=== PATIENT | female | born 1970 | race African-American/Black ===

== ENCOUNTER 2020-06-04 17:07 | Inpatient (IN) | payer MEDICARE, MEDICAID ==
[~2020-06-04] VITALS: Ht 165.1 cm; Wt 68.0 kg
[2020-06-04] MEDS ORDERED: OMEPRAZOLE40 MG (17:12)
[2020-06-04 18:24] LABS: ANION GAP 14.4 mmol/L (8-16); CARBON DIOXIDE 31.2 mmol/L (21.0-32.0); CREATININE - SERUM 1.4 mg/dL (0.6-1.3); POTASSIUM - SERUM 3.6 mmol/L (3.5-5.1)
[2020-06-04 18:27] LABS: BASOPHILS 0.1 % (0-2); EOSINOPHILS 0.5 % (0-7); HEMATOCRIT 45.8 % (36.0-48.0); HEMOGLOBIN 13.9 g/dL (12-16); IMMATURE GRANULOCYTES 0.2 % (0-5); LYMPHOCYTE ABS# 3.06 10x3/uL (1.18-3.74); LYMPHOCYTES 22.6 % (15-50); MCH 28.2 pg (26.0-34.0); MCHC 30.3 g/dL (31.0-37.0); MCV 92.9 fL (80.0-100.0); MEAN PLATELET VOLUME 10.5 fL (7.4-10.4); MONOCYTES 6.8 % (2-11); NEUTROPHIL ABS# 9.46 10x3/uL (1.56-6.13); NEUTROPHILS 69.8 % (40-80); PLATELET COUNT 387 10x3/uL (130-400); RBC 4.93 10x6/uL (4.00-5.40); RDW 15.3 % (11.5-14.5); WBC 13.6 10x3/uL (4.8-10.8)
[2020-06-04 18:30] LABS: ALBUMIN 3.9 g/dL (3.4-5.0); BILIRUBIN - TOTAL 0.47 mg/dL (0.2-1.3); PROTEIN - SERUM 7.8 g/dL (6.4-8.2)
[2020-06-04 21:45] VITALS: BP 110/69
[2020-06-05 00:03] VITALS: BP 108/76; BMI 25.0
[2020-06-05 04:00] VITALS: BP 112/72
[2020-06-05 06:05] LABS: INR 1.14 (0.85-1.17); PROTIME 13.5 SECONDS (11.6-15.0)
[2020-06-05 06:16] LABS: BASOPHILS 0.1 % (0-2); HEMOGLOBIN 12.3 g/dL (12-16); IMMATURE GRANULOCYTES 0.3 % (0-5); LYMPHOCYTE ABS# 3.14 10x3/uL (1.18-3.74); LYMPHOCYTES 27.7 % (15-50); MCH 27.7 pg (26.0-34.0); MCV 92.3 fL (80.0-100.0); MEAN PLATELET VOLUME 11.2 fL (7.4-10.4); MONOCYTES 7.7 % (2-11); NEUTROPHIL ABS# 7.18 10x3/uL (1.56-6.13); NEUTROPHILS 63.2 % (40-80); PLATELET COUNT 388 10x3/uL (130-400); RBC 4.44 10x6/uL (4.00-5.40); RDW 15.6 % (11.5-14.5); WBC 11.3 10x3/uL (4.8-10.8)
--- NOTE | 2020-06-05 06:21 | NUR ---
ASSESSED AT THE TIME OF ADMIT FROM THE ER. PT IS SLEEPY AND NOT WANTING TO WAKE UP. MOM WAS AT THE BEDSIDE AND ANSWERED QUESTIONS. STATED DAUGHTER IS ORIENTED BUT BECAUSE OF HER DEAFNESS AND SUCH POOR VISION SHE MIGHT NOT APPEAR TO BE. ONCE DURING THE NIGHT SHE WAS ASSISTED UP TO THE BATHROOM TO VOID. SHE HAD NO PROBLEM WITH NURSE LEADING HER. THE REST OF THE NIGHT SHE HAS BEEN SLEEPING QUIET.
[2020-06-05 06:32] LABS: ALBUMIN 3.4 g/dL (3.4-5.0); ALKALINE PHOSPHATASE 87 U/L (30-120); BILIRUBIN - TOTAL 0.37 mg/dL (0.2-1.3); CALC OSMOLALITY 290 mosm/kg (275-300); CALCIUM 8.2 mg/dL (8.5-10.1); CARBON DIOXIDE 25.5 mmol/L (21.0-32.0); CHLORIDE - SERUM 106 mmol/L (98-107); CREATINE KINASE 32 UL (21-215); CREATININE - SERUM 1.1 mg/dL (0.6-1.3); GLUCOSE 79 mg/dL (74-106); MAGNESIUM - SERUM 2.5 mg/dL (1.8-2.4); POTASSIUM - SERUM 3.5 mmol/L (3.5-5.1); PROTEIN - SERUM 6.6 g/dL (6.4-8.2); SODIUM 145 mmol/L (136-145); TROPONIN-I < 0.017 ng/mL (0.000-0.060); UREA NITROGEN 22 mg/dL (7-18); eGFR NON AFRICAN AMERICAN 55 mL/min (90-120)
[2020-06-05 06:36] LABS: ALT (SGPT) 182 U/L (10-68)
--- NOTE | 2020-06-05 07:20 | NUR ---
REC'D IN BED RESTING WITH EYES CLOSED EASILY TO AROUSED WHEN NAME IS CALLED. RESP EVEN AND UNLABORED WITH NO DISTRESS NOTED. CAN EXPRESS NEEDS AND WANTS. NO C/O NOTED OR VOICED. ASSESSMENT COMPLETED. C/L IN REACH AT BEDSIDE.
[2020-06-05 08:33] VITALS: BP 119/77
[2020-06-05 13:47] VITALS: Ht 165.1 cm; Wt 68.0 kg
[2020-06-05 13:56] VITALS: BP 106/70
--- NOTE | 2020-06-05 14:07 | NUR ---
JUST REC'D BACK FROM RECOVERY WITH DRESSING NOTED TO MILD LINE AND STOMA BEET RED WITH SOME BLOODY DRAINAGE NOTED TO BAG. NO DISCOMFORT NOTED. MOM AT BEDSIDE. WILL CONTIUE TO MONITOR. C/L IN REACH AT BEDSIDE.
[2020-06-05 17:07] VITALS: BP 118/73
--- NOTE | 2020-06-05 17:21 | NUR ---
I have reviewed this patient and I concur with the Shift Assessment completed by the Licensed Practical Nurse today this shift.
[2020-06-05 20:21] VITALS: BP 120/77; BP 155/61
[2020-06-06 00:22] VITALS: BP 124/75
[2020-06-06 05:26] VITALS: BP 122/76
[2020-06-06 05:39] LABS: BASOPHILS 0.1 % (0-2); EOSINOPHILS 0.2 % (0-7); HEMATOCRIT 36.9 % (36.0-48.0); HEMOGLOBIN 11.1 g/dL (12-16); IMMATURE GRANULOCYTES 0.2 % (0-5); LYMPHOCYTE ABS# 2.96 10x3/uL (1.18-3.74); MCH 27.5 pg (26.0-34.0); MCHC 30.1 g/dL (31.0-37.0); MCV 91.3 fL (80.0-100.0); MEAN PLATELET VOLUME 11.2 fL (7.4-10.4); MONOCYTES 8.5 % (2-11); NEUTROPHIL ABS# 9.85 10x3/uL (1.56-6.13); PLATELET COUNT 325 10x3/uL (130-400); RBC 4.04 10x6/uL (4.00-5.40); RDW 15.6 % (11.5-14.5); WBC 14.1 10x3/uL (4.8-10.8)
[2020-06-06 06:57] LABS: ANION GAP 17.4 mmol/L (8-16); BILIRUBIN - TOTAL 0.44 mg/dL (0.2-1.3); CALCIUM 7.6 mg/dL (8.5-10.1); CARBON DIOXIDE 20.6 mmol/L (21.0-32.0); PROTEIN - SERUM 5.3 g/dL (6.4-8.2)
[2020-06-06 06:58] LABS: ALBUMIN 2.5 g/dL (3.4-5.0)
[2020-06-06 08:10] VITALS: BP 121/75
--- NOTE | 2020-06-06 09:25 | NUR ---
PATIENT DEAF, BLIND, AND NON VERBAL. MOM AT BEDSIDE. ASSESSMENT COMPLETE. BED LOW. CALL CONDON AND PERSONAL ITEMS IN REACH. WILL CONTINUE TO MONITOR.
[2020-06-06 10:11] LABS: HEPATITIS C ANTIBODY <0.1 S/CO RAT (0.0-0.9)
--- NOTE | 2020-06-06 10:55 | NUR ---
GUTHRIE CLAMPED TO OBTAIN URINE SAMPLE.
--- NOTE | 2020-06-06 11:36 | NUR ---
UA COLLECTED AND TAKEN TO LAB.
[2020-06-06 11:59] VITALS: BP 130/76
[2020-06-06 12:19] LABS: BILIRUBIN NEGATIVE (NEGATIVE); KETONE LARGE mg/dL (NEGATIVE); NITRITE NEGATIVE (NEGATIVE); UROBILINOGEN NORMAL mg/dL (< 2)
[2020-06-06 12:21] LABS: BACTERIA FEW HPF (NONE SEEN); WHITE CELLS - URINE 0-5 HPF (0-4)
--- NOTE | 2020-06-06 13:20 | NUR ---
PT IN BED SUPINE. FAMILY AT BEDSIDE SPEAKING FOR PATIENT. DENIES ANY NEEDS AT THIS TIME. BED IN LOWEST POSITION, BED RAILS X2, CALL LIGHT WITHIN REACH. WILL CONTINUE POC.
--- NOTE | 2020-06-06 14:04 | NUR ---
HUNG IV TYLENOL. TOLERATING WELL, RESTING COMFORTABLY. FAMILY AT BEDSIDE. DENIES ANY NEEDS AT THIS TIME. BED IN LOWEST POSITION, BED RAILS X2, CALL LIGHT WITHIN REACH. WILL CONTINUE POC.
[2020-06-06 17:21] VITALS: BP 125/81
[2020-06-06 21:51] VITALS: BP 131/77
[2020-06-07 01:18] VITALS: BP 114/78
[2020-06-07 05:56] VITALS: BP 129/63
[2020-06-07 06:37] LABS: BASOPHILS 0.1 % (0-2); EOSINOPHILS 1.6 % (0-7); HEMATOCRIT 30.9 % (36.0-48.0); HEMOGLOBIN 9.2 g/dL (12-16); IMMATURE GRANULOCYTES 0.3 % (0-5); LYMPHOCYTE ABS# 2.61 10x3/uL (1.18-3.74); LYMPHOCYTES 24.4 % (15-50); MCH 27.4 pg (26.0-34.0); MCHC 29.8 g/dL (31.0-37.0); MEAN PLATELET VOLUME 10.7 fL (7.4-10.4); MONOCYTES 6.6 % (2-11); NEUTROPHIL ABS# 7.17 10x3/uL (1.56-6.13); PLATELET COUNT 293 10x3/uL (130-400); RBC 3.36 10x6/uL (4.00-5.40); RDW 15.4 % (11.5-14.5); WBC 10.7 10x3/uL (4.8-10.8)
[2020-06-07 06:51] LABS: ALBUMIN 2.2 g/dL (3.4-5.0); ANION GAP 13.8 mmol/L (8-16); BILIRUBIN - TOTAL 0.36 mg/dL (0.2-1.3); CALCIUM 7.7 mg/dL (8.5-10.1); CARBON DIOXIDE 20.7 mmol/L (21.0-32.0); CREATININE - SERUM 0.9 mg/dL (0.6-1.3); MAGNESIUM - SERUM 1.8 mg/dL (1.8-2.4); PHOSPHOROUS 2.4 mg/dL (2.5-4.9); POTASSIUM - SERUM 3.5 mmol/L (3.5-5.1); PROTEIN - SERUM 5.1 g/dL (6.4-8.2)
--- NOTE | 2020-06-07 07:51 | NUR ---
PT IN BED EYES CLOSED UPON ENTERING, FAMLY AT BEDSIDE. NO S/S OF DISTRESS NOTED AT THIS TIME. BED IN LOWEST POSITION, BED RAILS X2, CALL LIGHT WITHIN REACH. WILL CONTINUE POC.
--- NOTE | 2020-06-07 09:46 | NUR ---
PT IN BED WITH EYES CLOSED. BREATHING EVEN AND NON LABORED NO S/S OF DISTRESS NOTED AT THIS TIME. FAMILY AT BEDSIDE. ADMINISTERED MEDICATIONS, TOLERATED WELL. BED IN LOWEST POSITION, BED RAILS X2, CALL LIGHT WITHIN REACH. WILL CONTINUE POC.
--- NOTE | 2020-06-07 10:25 | NUR ---
PATIENT WITHOUT NEEDS.CALL LIGHT IN REACH
[2020-06-07 13:31] VITALS: BP 143/83
--- NOTE | 2020-06-07 13:57 | NUR ---
CALL PHARMACY FOR BAG OF PHOS DUE TO PT LEVEL OF 2.4 TOOLMAKER WAS RUDE ON THE PHONE. ANOTHER GENTLEMAN ANSWERED THE PHONE AND DID NOT GIVE ME THE NAME OF THE PREVIOUS WOMAN SPEAKING. GOT PHOS FILLED AFTER SPEAKING WITH HIM, NO ISSUES.
--- NOTE | 2020-06-07 16:01 | NUR ---
HUNG IV PHOS TO REPLACE EP PER PROTOCOL. TOLERATING WELL. PT APPEARS COMFORTABLE. FAMILY AT BEDSIDE. DENIES ANY NEEDS. WILL CONTINUE POC.
[2020-06-07 17:06] VITALS: BP 125/78
--- NOTE | 2020-06-07 18:39 | NUR ---
NEW BAG OF IV FLUIDS, TOLERATING WELL. FAMILY AT BEDSIDE. ATTEMTPED TO FEED PATIENT, IS NOT INTERESTED IN DINNER AT THIS TIME. FAMILY MEMBER WILL CONTINUE TO TRY. DENIES ANY NEEDS AT THIS TIME. WILL CONTINUE POC.
[2020-06-07 20:51] VITALS: BP 125/80
[2020-06-08 06:36] VITALS: BP 152/67
[2020-06-08 07:06] LABS: BASOPHILS 0.1 % (0-2); EOSINOPHILS 2.9 % (0-7); HEMATOCRIT 30.2 % (36.0-48.0); HEMOGLOBIN 9.1 g/dL (12-16); IMMATURE GRANULOCYTES 0.1 % (0-5); LYMPHOCYTE ABS# 2.29 10x3/uL (1.18-3.74); LYMPHOCYTES 24.4 % (15-50); MCH 27.1 pg (26.0-34.0); MCHC 30.1 g/dL (31.0-37.0); MEAN PLATELET VOLUME 10.5 fL (7.4-10.4); MONOCYTES 6.9 % (2-11); NEUTROPHIL ABS# 6.16 10x3/uL (1.56-6.13); NEUTROPHILS 65.6 % (40-80); PLATELET COUNT 310 10x3/uL (130-400); RBC 3.36 10x6/uL (4.00-5.40); RDW 15.2 % (11.5-14.5); WBC 9.4 10x3/uL (4.8-10.8)
[2020-06-08 07:19] LABS: MCV 89.9 fL (80.0-100.0)
[2020-06-08 07:24] LABS: ALBUMIN 2.2 g/dL (3.4-5.0); ALKALINE PHOSPHATASE 67 U/L (30-120); ALT (SGPT) 87 U/L (10-68); BILIRUBIN - TOTAL 0.31 mg/dL (0.2-1.3); CALCIUM 7.9 mg/dL (8.5-10.1); CARBON DIOXIDE 21.2 mmol/L (21.0-32.0); CHLORIDE - SERUM 109 mmol/L (98-107); CREATININE - SERUM 0.7 mg/dL (0.6-1.3); MAGNESIUM - SERUM 1.7 mg/dL (1.8-2.4); PHOSPHOROUS 2.3 mg/dL (2.5-4.9); PROTEIN - SERUM 5.2 g/dL (6.4-8.2); SODIUM 140 mmol/L (136-145); eGFR NON AFRICAN AMERICAN > 90 mL/min (90-120)
[2020-06-08 07:33] LABS: CALC OSMOLALITY 276 mosm/kg (275-300); GLUCOSE 100 mg/dL (74-106); UREA NITROGEN 7 mg/dL (7-18)
[2020-06-08 08:34] VITALS: BP 110/72
[2020-06-08 11:49] VITALS: BP 122/80
[2020-06-08 15:55] VITALS: BP 118/75
--- NOTE | 2020-06-08 19:45 | NUR ---
RECEIVED BEDSIDE REPORT. PT LAYING IN BED, DEAF AND BILAT PARTIAL BLINDNESS, PT IS NON-VERBAL, MOTHER IS AT BEDSIDE. PIV TO RIGHT HAND PATENT AND INFUSING, NO REDNESS OR SWELLING. COLOSOTMY TO RIGHT ABD, PATENT. MIDLINE INCISION TO MID ABD X2 LAP SITES. GUTHRIE IN PLACE DRAINING TO GRAVITY, STATLOCK IN PLACE, URINE CLEAR YELLOW. PT ABLE TO AMBULATE WITH PHYSICAL THERAPY TO EDGE OF BED. EDUCATED FAMILY ON CL AND NEEDS, VERBALIZED UNDERSTANDING. BED LOW, CL IN REACH.
[2020-06-08 20:00] VITALS: BP 119/69
[2020-06-09 04:00] VITALS: BP 104/75
--- NOTE | 2020-06-09 04:22 | NUR ---
CHANGED COLOSTOMY BAG, PT TOLERATED WELL. BED LOW, CL IN REACH.
[2020-06-09 06:30] LABS: BASOPHILS 0.1 % (0-2); EOSINOPHILS 3.8 % (0-7); HEMATOCRIT 29.8 % (36.0-48.0); IMMATURE GRANULOCYTES 0.1 % (0-5); LYMPHOCYTE ABS# 2.12 10x3/uL (1.18-3.74); LYMPHOCYTES 30.9 % (15-50); MCHC 30.2 g/dL (31.0-37.0); MCV 89.5 fL (80.0-100.0); MEAN PLATELET VOLUME 10.4 fL (7.4-10.4); MONOCYTES 6.1 % (2-11); NEUTROPHIL ABS# 4.05 10x3/uL (1.56-6.13); PLATELET COUNT 336 10x3/uL (130-400); RBC 3.33 10x6/uL (4.00-5.40); RDW 15.2 % (11.5-14.5); WBC 6.9 10x3/uL (4.8-10.8)
[2020-06-09 06:38] LABS: ALBUMIN 2.1 g/dL (3.4-5.0); ALKALINE PHOSPHATASE 67 U/L (30-120); ALT (SGPT) 148 U/L (10-68); BILIRUBIN - TOTAL 0.21 mg/dL (0.2-1.3); CALC OSMOLALITY 277 mosm/kg (275-300); CARBON DIOXIDE 21.5 mmol/L (21.0-32.0); CHLORIDE - SERUM 109 mmol/L (98-107); CREATININE - SERUM 0.8 mg/dL (0.6-1.3); GLUCOSE 98 mg/dL (74-106); MAGNESIUM - SERUM 1.9 mg/dL (1.8-2.4); POTASSIUM - SERUM 3.1 mmol/L (3.5-5.1); PROTEIN - SERUM 5.2 g/dL (6.4-8.2); SODIUM 140 mmol/L (136-145); UREA NITROGEN 9 mg/dL (7-18); eGFR NON AFRICAN AMERICAN 80 mL/min (90-120)
[2020-06-09 10:39] VITALS: BP 114/74
--- NOTE | 2020-06-09 10:42 | NUR ---
Nutrition follow-up: Pt s/p hemicolectomy; now with ostomy +BM; ostomy is working per Dr. Belcher Diet advanced today to regular as tolerated Wt: 150# Will provide food choices and honor all food preferences. Follow-up: 06/11/20
[2020-06-09 14:14] VITALS: BP 109/68
[2020-06-09 18:28] VITALS: BP 115/76
--- NOTE | 2020-06-09 19:45 | NUR ---
PT LAYING IN BED, DEAF AND BLIND. PIV TO LEFT HAND, PATENT AND S/L, NO REDNESS OR SWELLING. MIDLINE INCISION TO MID ABD, X2 LAP SITES. COLOSTOMY BAG TO RIGHT ABD. PT AMBULATES WITH ASSIST. EDUCATED PT FAMILY ON CL AND NEEDS, VERBALIZED UNDERSTANDING. BED LOW, CL IN REACH.
[2020-06-09 20:00] VITALS: BP 112/75
--- NOTE | 2020-06-10 02:00 | NUR ---
CHANGED COLOSTOMY BAG, TOLERATED WELL. BED LOW, CL IN REACH.
[2020-06-10 04:00] VITALS: BP 104/62
[2020-06-10 05:55] LABS: BASOPHILS 0 % (0-2); EOSINOPHILS 4.2 % (0-7); HEMATOCRIT 27.9 % (36.0-48.0); HEMOGLOBIN 8.6 g/dL (12-16); IMMATURE GRANULOCYTES 0.3 % (0-5); LYMPHOCYTES 41.6 % (15-50); MCH 27.4 pg (26.0-34.0); MCHC 30.8 g/dL (31.0-37.0); MCV 88.9 fL (80.0-100.0); MEAN PLATELET VOLUME 10.3 fL (7.4-10.4); MONOCYTES 6.1 % (2-11); NEUTROPHIL ABS# 2.99 10x3/uL (1.56-6.13); NEUTROPHILS 47.8 % (40-80); PLATELET COUNT 343 10x3/uL (130-400); RBC 3.14 10x6/uL (4.00-5.40); RDW 15.3 % (11.5-14.5); WBC 6.3 10x3/uL (4.8-10.8)
[2020-06-10 06:20] LABS: ALBUMIN 2.2 g/dL (3.4-5.0); ALKALINE PHOSPHATASE 74 U/L (30-120); ALT (SGPT) 172 U/L (10-68); BILIRUBIN - TOTAL 0.19 mg/dL (0.2-1.3); CALC OSMOLALITY 279 mosm/kg (275-300); CALCIUM 7.8 mg/dL (8.5-10.1); CARBON DIOXIDE 20.7 mmol/L (21.0-32.0); CHLORIDE - SERUM 111 mmol/L (98-107); CREATININE - SERUM 0.7 mg/dL (0.6-1.3); GLUCOSE 81 mg/dL (74-106); PHOSPHOROUS 2.1 mg/dL (2.5-4.9); POTASSIUM - SERUM 3.5 mmol/L (3.5-5.1); PROTEIN - SERUM 5.2 g/dL (6.4-8.2); SODIUM 141 mmol/L (136-145); eGFR NON AFRICAN AMERICAN > 90 mL/min (90-120)
[2020-06-10 06:21] LABS: UREA NITROGEN 13 mg/dL (7-18)
[2020-06-10 09:28] VITALS: BP 115/70
[2020-06-10 12:31] VITALS: BP 109/73
[2020-06-10] MEDS ORDERED: HYDROCODON-ACE1 EA10 PO (14:15)
--- NOTE | 2020-06-10 16:17 | MORECARE ---
CASE MANAGEMENT DISCHARGE SUMMARY PATIENT: ZAIN HOUSTON UNIT: [id number] ADM DATE: 06/04/20 AGE: 50 : [birth year] SEX: F ROOM/BED: D.2212 AUTHOR: GAURANG SHI PHYSICIAN: REFERRING PHYSICIAN: YASIR TAMEZ DO DATE OF SERVICE: 06/10/20 Discharge Plan Patient Name: ZAIN HOUSTON Facility: [facility]:[place] : 1970 Planned Disposition: Home with Home Health Anticipated Discharge Date: Discharge Date: Expected LOS: Initial Reviewer: [email or web address] Initial Review Date: 06/04/2020 Generated: 06/10/20 5:16 pm DCPIA - Discharge Planning Initial Assessment Updated by [email or web address]: Patsy Loyd on 06/10/20 4:12 pm * Is the patient Alert and Oriented? Yes * How many steps to enter\exit or inside your home? * PCP dr chaudhari * Pharmacy [facility] in [place] * Preadmission Environment Home with Family * ADLs Partial Dependent * Partial ADLs (Assistance needed) Medication Management * Equipment None * List name and contact numbers for known caregivers / representatives who currently or will assist patient after discharge: ZULMA HOUSTON [phone] * Verbal permission to speak to the caregivers and representatives has been obtained from the patient. N/A * Community resources currently utilized None * Additional services required to return to the preadmission environment? Yes * Can the patient safely return to the preadmission environment? Yes * Has this patient been hospitalized within the prior 30 days at any hospital? No External Providers External Provider: [facility] Next Contact Date: Service Request Date: Service Type: Resolution: Reviewer: Comments: Patient Name: ZAIN HOUSTON Page [phone] at 1617 All edits/amendments must be made on the electronic document DICTATION DATE: 06/10/20 1617 ENGRAVER OPTICAL FRAMES: DARINEL 06/10/20 1617 RPT#: [id number] DC DATE: STATUS: ADM IN [id number] [place] [address] END OF REPORT
--- NOTE | 2020-06-10 16:24 | MORECARE ---
CASE MANAGEMENT DISCHARGE SUMMARY PATIENT: ZAIN HOUSTON UNIT: [id number] ADM DATE: 06/04/20 AGE: 50 : [birth year] SEX: F ROOM/BED: D.2212 AUTHOR: JOSE GUADALUPEDOC PHYSICIAN: REFERRING PHYSICIAN: YASIR TAMEZ DO DATE OF SERVICE: 06/10/20 Discharge Plan Patient Name: ZAIN HOUSTON Facility: [facility]:[place] : 1970 Planned Disposition: Home with Home Health Anticipated Discharge Date: Discharge Date: Expected LOS: Initial Reviewer: [email or web address] Initial Review Date: 06/04/2020 Generated: 06/10/20 5:24 pm Comments DCP- Discharge Planning Updated by [email or web address]: Patsy Loyd on 06/10/20 3:[address] Patient Name: ZAIN HOUSTON Admission Status: ER Accout number: [id number] Admission Date: 06-04-2020 : 1970 Admission Diagnosis:UNSP INTESTNL OBST, UNSP TO PARTIAL VERSUS COMPLETE Attending: YASIR TAMEZ Current LOS: 6 Anticipated DC Date: Planned Disposition: Home with Home Health Primary Insurance: [facility] MEDIC[employer]UTIONS Discharge Planning Comments: CM met with patient's mother to complete initial dc planning assessment. CM educated her on the CM role and verbal consent given by patient to complete assessment. Patient lives at home with her mother and brother. The patient is blind and deaf. The mother helps her with whatever is needed. At discharge patient plans to return home and feels this is a safe discharge. CM discussed availability of home health, rehab services, and medical equipment. Patient has a new ostomy and will need home health and ostomy supplies. I have sent the referral to [facility] and they have accepted the patient. I have also ordered supplies from [employer] [phone]. I spoke with Lynnette from there. Telehone order was placed and they will mail supplies after [facility] gives the AUTH. Patient's account number with [employer] is [id number]. The number for the family to call is [phone] OPT 3. XI sigend and IMM also given and explained. Patient's nurse was suppose to give supplies home with them till the other can be mailed out. CM will continue to follow and will assist as needed with dc plans/needs Glove Cleaner: Patsy Loyd DCPIA - Discharge Planning Initial Assessment Updated by [email or web address]: Patsy Loyd on 06/10/20 4:12 pm * Is the patient Alert and Oriented? Yes * How many steps to enter\exit or inside your home? * PCP dr chaudhari * Pharmacy [facility] in [place] * Preadmission Environment Home with Family * ADLs Partial Dependent * Partial ADLs (Assistance needed) Medication Management * Equipment None * List name and contact numbers for known caregivers / representatives who currently or will assist patient after discharge: ZULMA HOUSTON [phone] * Verbal permission to speak to the caregivers and representatives has been obtained from the patient. N/A * Community resources currently utilized None * Additional services required to return to the preadmission environment? Yes * Can the patient safely return to the preadmission environment? Yes * Has this patient been hospitalized within the prior 30 days at any hospital? No Coverage Notice Reviewer: [email or web address] Denise Loyd Notice Issued Date-Time: 06/10/2020 14:40 Notice Type: Patient Choice Letter Notice Delivered To: Family Member Relationship to Patient: Mother Divider Operator Name: Delivery Method: HAND - Hand Delivered Maryann Days: Prior Verbal Notification: Recipient Understood Notice: Yes Recipient Signature: Yes Med Rec Note Co-signed by Attending: Coverage Notice Comment: imm served Reviewer: [id number] Denise Loyd Notice Issued Date-Time: 06/10/2020 14:40 Notice Type: Patient Choice Letter Notice Delivered To: Relationship to Patient: Divider Operator Name: Delivery Method: HAND - Hand Delivered Maryann Days: Prior Verbal Notification: Recipient Understood Notice: Yes Recipient Signature: Yes Med Rec Note Co-signed by Attending: Coverage Notice Comment: xi for hh with mom Last DP export: 06/10/20 3:17 pm Patient Name: ZAIN HOUSTON Page 01007 at 1624 All edits/amendments must be made on the electronic document DICTATION DATE: 06/10/201623 CLAY THROWER: DARINEL 06/10/20 1624 RPT#: [id number] DC DATE: STATUS: ADM IN [facility] [address] [place] [address] END OF REPORT
--- NOTE | 2020-06-11 10:39 | MORECARE ---
CASE MANAGEMENT DISCHARGE SUMMARY PATIENT: ZAIN HOUSTON UNIT: [id number] ADM DATE: 06/04/20 AGE: 50 : [birth year] SEX: F ROOM/BED: D.2212 AUTHOR: JOSE GUADALUPE,DOC PHYSICIAN: REFERRING PHYSICIAN: YASIR TAMEZ DO DATE OF SERVICE: 06/11/20 Discharge Plan Patient Name: ZAIN HOUSTON Facility: [facility]:[place] : 1970 Planned Disposition: Home with Home Health Anticipated Discharge Date: Discharge Date: 06/10/2020 Expected LOS: Initial Reviewer: [email or web address] Initial Review Date: 06/04/2020 Generated: 06/11/20 11:38 am Comments DCP- Discharge Planning Updated by [email or web address]: Patsy Loyd on 06/10/20 3:[address] Patient Name: ZAIN HOUSTON Admission Status: ER Accout number: [id number] Admission Date: 06-04-2020 : 1970 Admission Diagnosis:UNSP INTESTNL OBST, UNSP TO PARTIAL VERSUS COMPLETE Attending: YASIR TAMEZ Current LOS: 6 Anticipated DC Date: Planned Disposition: Home with Home Health Primary Insurance: [facility] [employer] Discharge Planning Comments: CM met with patient's mother to complete initial dc planning assessment. CM educated her on the CM role and verbal consent given by patient to complete assessment. Patient lives at home with her mother and brother. The patient is blind and deaf. The mother helps her with whatever is needed. At discharge patient plans to return home and feels this is a safe discharge. CM discussed availability of home health, rehab services, and medical equipment. Patient has a new ostomy and will need home health and ostomy supplies. I have sent the referral to [facility] and they have accepted the patient. I have also ordered supplies from [employer] [phone]. I spoke with Lynnette from there. Telehone order was placed and they will mail supplies after [facility] gives the AUTH. Patient's account number with [employer] is [id number]. The number for the family to call is [phone] OPT 3. XI sigend and IMM also given and explained. Patient's nurse was suppose to give supplies home with them till the other can be mailed out. CM will continue to follow and will assist as needed with dc plans/needs Loss Control Consultant: Patsy Loyd DCPIA - Discharge Planning Initial Assessment Updated by [email or web address]: Patsy Loyd on 06/10/20 4:12 pm * Is the patient Alert and Oriented? Yes * How many steps to enter\exit or inside your home? * PCP dr chaudhari * Pharmacy [facility] in [place] * Preadmission Environment Home with Family * ADLs Partial Dependent * Partial ADLs (Assistance needed) Medication Management * Equipment None * List name and contact numbers for known caregivers / representatives who currently or will assist patient after discharge: ZULMA HOUSTON [phone] * Verbal permission to speak to the caregivers and representatives has been obtained from the patient. N/A * Community resources currently utilized None * Additional services required to return to the preadmission environment? Yes * Can the patient safely return to the preadmission environment? Yes * Has this patient been hospitalized within the prior 30 days at any hospital? No Coverage Notice Reviewer: [id number] Denise Loyd Notice Issued Date-Time: 06/10/2020 14:40 Notice Type: Patient Choice Letter Notice Delivered To: Family Member Relationship to Patient: Mother Education Teacher Name: Delivery Method: HAND - Hand Delivered Maryann Days: Prior Verbal Notification: Recipient Understood Notice: Yes Recipient Signature: Yes Med Rec Note Co-signed by Attending: Coverage Notice Comment: imm served Reviewer: [email or web address] Denise Loyd Notice Issued Date-Time: 06/10/2020 14:40 Notice Type: Patient Choice Letter Notice Delivered To: Relationship to Patient: Education Teacher Name: Delivery Method: HAND - Hand Delivered Maryann Days: Prior Verbal Notification: Recipient Understood Notice: Yes Recipient Signature: Yes Med Rec Note Co-signed by Attending: Coverage Notice Comment: xi for hh with mom Last DP export: 06/10/20 3:24 pm Patient Name: ZAIN HOUSTON Page [phone] at 1039 All edits/amendments must be made on the electronic document DICTATION DATE: 06/11/20 1038 SYSTEMS ANALYST ENGINEER: DARINEL 06/11/20 1038 RPT#: [id number] DC DATE:06/10/20 STATUS: DIS IN [facility] [address] [place] [address] END OF REPORT
--- NOTE | 2020-06-11 14:50 | OP ---
PATIENT NAME: ZAIN HOUSTON MEDICAL RECORD: [id number] :[birth year] LOCATION:D.MS Good[address]12 ADMISSION DATE:06/04/20 SURGEON: RAOUL DAVIS MD DATE OF OPERATION: 06/05/2020 PREOPERATIVE DIAGNOSES: 1. Large bowel obstruction. 2. Transverse colon mass. 3. Deafness. 4. Blindness. POSTOPERATIVE DIAGNOSES: 1. Large bowel obstruction. 2. Transverse colon mass. 3. Deafness. 4. Blindness. PROCEDURE: Hand-assisted laparoscopic left hemicolectomy. SURGEON: Raoul Davis MD DESCRIPTION OF PROCEDURE: The patient's abdomen was prepped and draped in sterile fashion. A skin incision was made around the umbilicus. Electrocautery was used to dissect through the subcutaneous tissues. We entered the abdominal cavity and placed a GelPort with a 5 mm trocar within it. With this in place, we were able to place two other 5-mm trocars, one in the suprapubic region and another in the left lower quadrant. It was very difficult to visualize much of the abdomen because of the distention of the small bowel. The patient had a large bowel obstruction extending up through the small bowel causing dilation of all of this bowel proximally. I eventually milked some of the small bowel contents toward the stomach, which helped with visualization. We took down the white line of Toldt on the left side of the colon and came up around the splenic flexure. We mobilized the splenic flexure and was able to encounter the mass at the distal transverse colon. The mass was very firm, but was not adherent to any other solid organ structures. The omentum was taken down just past the greater curvature of the stomach and we were able to eventually mobilize this entire portion of the splenic flexure to where we could eviscerate it through a wound protector. The size of the mass made it difficult to pull through the initial opening, so we extended the incision superiorly, and at this point, we were able to eviscerate the large mass and the splenic flexure and proximal left colon through the wound protector. We then transected the colon with a 55 blue load RANDALL stapler about 5 cm proximal to the mass and distally on the descending colon. The mesentery was taken down with sequential clamp and tie technique, and once we had the mass completely out, it was sent off for permanent specimen. I felt no evidence of other metastatic lesions in the abdominal cavity. We then made an opening in the patient's right upper quadrant through the rectus muscle and eviscerated the distal aspect of the transverse colon through this for an ostomy. We then irrigated out the abdomen with normal saline and assured there was no sign of any active bleeding. I saw no evidence of any bowel injury. The midline fascia was closed with running #1 looped PDS times 2. The subcutaneous tissues were irrigated out and then reapproximated with interrupted 3-0 Vicryl. The skin incision was closed with violette in the midline and the 5-mm trocar sites were closed with subcutaneous 5-0 Monocryl. We then matured the ostomy in a brooking fashion with multiple interrupted 4-0 Vicryl. Dressings were then applied and an ostomy bag. OPERATIVE REPORT [id number] ZAIN HOUSTON COMPLICATIONS: None. CONDITION: Stable. ANESTHESIA: General endotracheal. BLOOD LOSS: 100 mL. TRANSINT:[id number] Voice Confirmation ID: [id number] DOCUMENT ID: [id number] RAOUL DAVIS MD at 1450 CC: OKSANA WHITTINGTON MD [id number] DICTATION DATE: 06/05/20 1304 MANAGEMENT ENGINEER: 06/05/20 2331 DIS IN 06/10/20 [id number] [place] [address]
== END 2020-06-10 18:00 | disposition home health service (06) | DRG 330 ==
LOC: D.ER 17:07 → D.MS 18:36 → D.EDHOLD 18:36 → D.MS 23:18 → D.SDCHOLD 06-05 16:11 → D.MS 06-05 16:14
PROVIDERS: Emergency Medicine; Surgery; ADMIT Family Medicine; ATTEND Family Medicine
PROC: 0DTG0ZZ Resection of Left Large Intestine, Open Approach (ICD-10-PCS; principal; 2020-06-05 10:30)
DX: K56.609 Unspecified intestinal obstruction, unspecified as to partial versus complete obstruction (principal); N17.9 Acute kidney failure, unspecified; R74.01 Elevation of levels of liver transaminase levels; R00.0 Tachycardia, unspecified; H91.90 Unspecified hearing loss, unspecified ear; K21.9 Gastro-esophageal reflux disease without esophagitis; H54.7 Unspecified visual loss